=== PATIENT | female | born 1975 | race Caucasian/White ===

== ENCOUNTER 2017-01-31 08:27 | Outpatient (CLI) | payer BC | END 2017-01-31 08:28 | disposition home or self-care (01) | LOC: BICMAMMO 08:27 | DX: Z12.31 Encounter for screening mammogram for malignant neoplasm of breast (principal) | CPT/HCPCS: 77067; G0202 ==

== ENCOUNTER 2018-05-16 10:25 | Outpatient (CLI) | payer BC ==
--- NOTE | 2018-05-16 11:22 | MMO ---
Bilateral MAMMO Bilat Screen [facility]. CLINICAL HISTORY: Patient is 42 years old and is seen for screening. The patient has no family history of breast cancer. The patient has no personal history of cancer. VIEWS: The views performed were: bilateral craniocaudal with tomosynthesis and bilateral mediolateral oblique with tomosynthesis. FILMS COMPARED: The present examination has been compared to prior imaging studies performed at [facility] on 12/15/2014, 01/25/2016 and 01/31/2017. MAMMOGRAM FINDINGS: The breasts are heterogeneously dense, which could obscure a lesion on mammography. There are no suspicious masses, suspicious calcifications, or new areas of architectural distortion. IMPRESSION: THERE IS NO MAMMOGRAPHIC EVIDENCE OF MALIGNANCY. A ROUTINE FOLLOW-UP MAMMOGRAM IN 1 YEAR IS RECOMMENDED. THE RESULTS OF THIS EXAM WERE SENT TO THE PATIENT. ACR BI-RADS Category 1 - Negative MAMMOGRAPHY NOTE: 1. A negative mammogram report should not delay a biopsy if a dominant of clinically suspicious mass is present. 2. Approximately 10% to 15% of breast cancers are not detected by mammography. 3. Adenosis and dense breasts may obscure an underlying neoplasm.
== END 2018-05-16 10:26 | disposition home or self-care (01) ==
LOC: BICMAMMO 10:25
PROVIDERS: ATTEND Family Medicine
DX: Z12.31 Encounter for screening mammogram for malignant neoplasm of breast (principal)
CPT/HCPCS: 77063; 77067

== ENCOUNTER 2020-07-14 07:59 | Outpatient (CLI) | payer BC | END 2020-07-14 08:00 | disposition home or self-care (01) | LOC: BICMAMMO 07:59 | PROVIDERS: ATTEND Family Medicine | DX: Z12.31 Encounter for screening mammogram for malignant neoplasm of breast (principal); N64.89 Other specified disorders of breast | CPT/HCPCS: 77063; 77067 ==

== ENCOUNTER 2020-07-16 09:00 | Outpatient (CLI) | payer BC | END 2020-07-16 09:01 | disposition home or self-care (01) | LOC: BICMAMMO 09:00 | PROVIDERS: ATTEND Family Medicine | DX: R92.2 Inconclusive mammogram (principal); Q83.9 Congenital malformation of breast, unspecified | CPT/HCPCS: G0279 ==

== ENCOUNTER 2020-07-30 06:42 | Outpatient (CLI) | payer BC | END 2020-07-30 06:43 | disposition home or self-care (01) | LOC: BICMRI 06:42 | PROVIDERS: ATTEND Family Medicine | DX: N63.20 Unspecified lump in the left breast, unspecified quadrant (principal) | CPT/HCPCS: A9577; C8908 ==

== ENCOUNTER → 2020-08-13 | Day surgery (SDC) | payer BC | LOC: BICMRI 08:09 | PROVIDERS: ATTEND Family Medicine | PROC: 0H9T0ZX Drainage of Right Breast, Open Approach, Diagnostic (ICD-10-PCS; principal; 2020-08-13) | DX: D24.1 Benign neoplasm of right breast (principal); N60.91 Unspecified benign mammary dysplasia of right breast | CPT/HCPCS: 19085; 88305; 88341; 88342; A9577 ==

== ENCOUNTER 2020-09-10 07:08 | Day surgery (SDC) | payer BC ==
[2020-09-09 13:50] VITALS: BMI 23.5
[2020-09-10 08:58] LABS: #Basophils 0.1 thou/uL (0.0-0.2); #Eosinphils 0.1 thou/uL (0.0-0.7); #Lymphocytes 1.7 thou/uL (1.20-3.40); #Monocytes 0.8 thou/uL (0.11-0.59); #Neutrophils 5.5 thou/uL (1.40-6.50); %Basophils 1.1 % (0.0-1.0); %Eosinophils 1.5 % (0.0-10.0); %Lymphocytes 20.3 % (21.0-51.0); %Monocytes 9.8 % (0.0-10.0); %Neutrophils 67.3 % (42.0-75.0); Hemoglobin 14.1 g/dL (12.0-16.0); Mean Corpuscular HGB CONC 32.8 g/dL (32.0-36.0); Mean Corpuscular Hemoglobin 31.1 pg (27.0-31.0); Mean Corpuscular Volume 94.9 fL (78.0-98.0); Mean Platelet Volume 7.1 fL (7.4-10.4); Platelet Count 359 thou/uL (130-400); RBC Distribution Width 12.9 % (11.5-14.5); Red Blood Cell (RBC) Count 4.53 mill/uL (4.20-5.40); White Blood Cell (WBC) Count 8.1 thou/uL (4.8-10.8)
[2020-09-10 09:16] LABS: Anion Gap 12 mmol/L (10-20); BUN (Urea Nitrogen) 13 mg/dL (7.0-18.7); Calc. Creatinine Clearance 94 mL/min (70-130); Carbon Dioxide 28 mmol/L (22-29); Chloride 100 mmol/L (98-107); Glucose 94 mg/dL (70-105); Potassium 3.4 mmol/L (3.5-5.1); Sodium 137 mmol/L (136-145)
[2020-09-10] MEDS ORDERED: Lidocaine 2% PF 5 ML VIAL ONE (09:19)
[2020-09-10] MEDS ORDERED: Ketorolac Tromethamine 30 MG/ML VIAL ONE (09:19)
[2020-09-10] MEDS ORDERED: PROPOFOL 200 MG/20 ML VIAL ONE (09:19)
[2020-09-10] MEDS ORDERED: Dexamethasone 20 MG/5 ML VIAL ONE (09:19)
[2020-09-10] MEDS ORDERED: PHENYLEPHRINE-NS 100 MCG/ML 10 ML SYRINGE ONE (09:19)
[2020-09-10] MEDS ORDERED: diphenhydrAMINE 50 MG/ML VIAL ONE (09:19)
[2020-09-10] MEDS ORDERED: Ondansetron PF 4 MG/2 ML Vial ONE (09:19)
== END 2020-09-10 13:39 | disposition home or self-care (01) ==
LOC: MAMMO 07:08
PROVIDERS: ATTEND Specialist
PROC: 0HBT0ZZ Excision of Right Breast, Open Approach (ICD-10-PCS; principal; 2020-09-10)
PROC: BH00ZZZ Plain Radiography of Right Breast (ICD-10-PCS; principal; 2020-09-10)
DX: C50.811 Malignant neoplasm of overlapping sites of right female breast (principal); N60.21 Fibroadenosis of right breast; N60.81 Other benign mammary dysplasias of right breast; E89.0 Postprocedural hypothyroidism; G89.29 Other chronic pain; M54.9 Dorsalgia, unspecified; Z79.899 Other long term (current) drug therapy; Z88.1 Allergy status to other antibiotic agents
CPT/HCPCS: 19281; 76098; 80048; 85025; 88307; 88341; 88342; J1100; J1200; J1885; J2001; J2405; J2704

== ENCOUNTER 2020-10-08 08:10 | Day surgery (SDC) | payer BC ==
[2020-10-07 10:16] VITALS: BMI 23.5
[2020-10-08] MEDS ORDERED: Midazolam HCl 2 mg/2 ml Vial ONE (10:22)
[2020-10-08] MEDS ORDERED: Meperidine HCl/PF 25 MG/ML VIAL ONE (11:13)
[2020-10-08] MEDS ORDERED: Fentanyl 100 MCG/2 ML VIAL ONE (11:13)
[2020-10-08] MEDS ORDERED: Bupivacaine PF 0.5% 30 ML VIAL ONE (11:17)
[2020-10-08] MEDS ORDERED: Lidocaine 1% w/Epinephrine 1:100K 20 ML VIAL ONE (11:17)
[2020-10-08] MEDS ORDERED: Isosulfan Blue 50 MG/5 ML VIAL ONE (11:17)
[2020-10-08] MEDS ORDERED: Lidocaine 1% PF 5 ML VIAL ONE (11:44)
[2020-10-08] MEDS ORDERED: ePHEDrine 50 MG/ML VIAL ONE (11:44)
[2020-10-08] MEDS ORDERED: Ondansetron PF 4 MG/2 ML Vial ONE (11:44)
[2020-10-08] MEDS ORDERED: PROPOFOL 200 MG/20 ML VIAL ONE (11:44)
[2020-10-08] MEDS ORDERED: Dexamethasone 20 MG/5 ML VIAL ONE (11:44)
[2020-10-08] MEDS ORDERED: diphenhydrAMINE 50 MG/ML VIAL ONE (11:44)
[2020-10-08] MEDS ORDERED: HYDROcodone/Acetaminophen 5/325 mg Tablet ONE (13:51)
== END 2020-10-08 15:05 | disposition home or self-care (01) ==
LOC: NM 08:10
PROVIDERS: ATTEND Specialist
PROC: 07B50ZX Excision of Right Axillary Lymphatic, Open Approach, Diagnostic (ICD-10-PCS; principal; 2020-10-08)
DX: C50.411 Malignant neoplasm of upper-outer quadrant of right female breast (principal); N60.91 Unspecified benign mammary dysplasia of right breast; E89.0 Postprocedural hypothyroidism; G89.29 Other chronic pain; M54.9 Dorsalgia, unspecified; Z17.0 Estrogen receptor positive status [ER+]; Z79.899 Other long term (current) drug therapy; Z88.1 Allergy status to other antibiotic agents
CPT/HCPCS: 78195; 88307; 88342; A9541; J1100; J1200; J2175; J2250; J2405; J2704; J3010; J3490; Q9968; S0020

== ENCOUNTER 2021-04-14 11:24 | Outpatient (CLI) | payer BC | END 2021-04-14 11:25 | disposition home or self-care (01) | LOC: RAD 11:24 | PROVIDERS: ATTEND Family Medicine | DX: M54.50 Low back pain, unspecified (principal); G89.29 Other chronic pain; M41.9 Scoliosis, unspecified; M47.816 Spondylosis without myelopathy or radiculopathy, lumbar region; Z98.1 Arthrodesis status | CPT/HCPCS: 72100 ==

== ENCOUNTER 2021-06-21 09:14 | Outpatient (CLI) | payer BC | END 2021-06-21 09:15 | disposition home or self-care (01) | LOC: TBSIIMAG 09:14 | PROVIDERS: ATTEND Family Medicine | DX: M47.816 Spondylosis without myelopathy or radiculopathy, lumbar region (principal); M51.9 Unspecified thoracic, thoracolumbar and lumbosacral intervertebral disc disorder; M41.9 Scoliosis, unspecified; G89.4 Chronic pain syndrome; Z98.1 Arthrodesis status | CPT/HCPCS: 72158 ==

== ENCOUNTER 2021-07-15 08:21 | Outpatient (CLI) | payer BC | END 2021-07-15 08:22 | disposition home or self-care (01) | LOC: BICMAMMO 08:21 | PROVIDERS: ATTEND Internal Medicine Hematology & Oncology | DX: Z08 Encounter for follow-up examination after completed treatment for malignant neoplasm (principal); Z85.3 Personal history of malignant neoplasm of breast | CPT/HCPCS: 77066; G0279 ==

== ENCOUNTER 2021-11-16 13:48 | Outpatient (CLI) | payer BC | END 2021-11-16 13:49 | disposition home or self-care (01) | LOC: BICMAMMO 13:48 | PROVIDERS: ATTEND Family Medicine | DX: Z13.820 Encounter for screening for osteoporosis (principal); N95.9 Unspecified menopausal and perimenopausal disorder | CPT/HCPCS: 77080 ==

== ENCOUNTER 2023-02-02 12:24 | Outpatient (CLI) | payer BC | END 2023-02-02 12:25 | disposition home or self-care (01) | LOC: BICMAMMO 12:24 | PROVIDERS: ATTEND Nurse Practitioner Family | DX: Z13.820 Encounter for screening for osteoporosis (principal); M85.851 Other specified disorders of bone density and structure, right thigh; M85.852 Other specified disorders of bone density and structure, left thigh; Z78.0 Asymptomatic menopausal state | CPT/HCPCS: 77080 ==